=== PATIENT | female | born 1975 | race Caucasian/White ===

== ENCOUNTER 2018-07-22 20:48 | Emergency (ER) | payer OTHER ==
[2018-07-22 20:52] VITALS: BP 132/78; PULSE 78; TEMP 98.1; BMI 23.3
--- NOTE | 2018-07-22 21:16 | PDOC ---
History of Present Illness - General Chief Complaint: Headache Stated Complaint: MIGRAINE, HEAD PAIN Time Seen by Provider: 07/22/18 21:11 - History of Present Illness Initial Comments: 42-year-old female with abrupt onset of headache for the last 4 hours. She complains of right-sided head and eye pain as well as right-sided ear pain. She has never had a headache like this before she normally does not get headaches. She denies . She states she's had a bilateral tubal ligation in the past. 07/22/18 21:14 Past History - Past Medical History Allergies/Adverse Reactions: Allergies Allergy/AdvReac Type Severity Reaction Status Date / Time No Known Allergies Allergy Verified 07/22/18 20:52 Home Medications: Ambulatory Orders NK [No Known Home Medication] 07/22/18 COPD: No - Suicide/Smoking/Psychosocial Hx Smoking History: Never smoked Review of Systems - Review of Systems Neurological: Yes: Headache All Other Systems: Reviewed and Negative *Physical Exam - Vital Signs Last Vital Signs Temp Pulse Resp BP Pulse Ox 98.1 F 78 18 132/78 98 07/22/18 20:50 07/22/18 20:50 07/22/18 20:50 07/22/18 20:50 07/22/18 20:50 - Physical Exam Comments: HEAD: NC/AT EYES: Conjuntiva clear Ears: Canals and TM's normal NOSE: No d/c THROAT: Moist mucous membrances, oral pharanx clear, uvula midline NECK: Supple without adenopathy CARDIAC: S1 S2 LUNGS: CTA Full and Equal breath sounds ABDOMEN: Soft NT ND MS: Full ROM in all joints without edema NEUROLOGIC: No gross sensory or motor deficits, NVID SKIN: Normal color and temperature no lesions or rashes 07/22/18 21:15 ED Treatment Course - RADIOLOGY Radiology Studies Ordered: Category Date Time Status HEAD CT WITHOUT CONTRAST [CT] Stat CT Scan 07/22/18 21:14 Ordered Medical Decision Making - Medical Decision Making CAT scan negative headache resolved with IV Tylenol 07/22/18 22:23 *DC/Admit/Observation/Transfer Diagnosis at time of Disposition: Headache - Discharge Dispostion Disposition: HOME Condition at time of disposition: Improved Decision to Admit order: No - Referrals Referrals: Roddy Orellana [Primary Care Provider] - - Patient Instructions Printed Discharge Instructions: DI for Headache Additional Instructions: Continue to take Motrin and Tylenol for pain if you need. Take that as directed. Return to the emergency room should symptoms come back. Follow-up with her primary care physician for further evaluation and treatment options of her headache. - Post Discharge Activity
[2018-07-22] MEDS ORDERED: ACETAMINOPHEN 1000 MG/100 ML VIAL (NON FORMULARY) IVPB ONE (21:40)
[2018-07-22] MEDS ORDERED: ACETAMINOPHEN INJECTION 100 ML IVPB ONE (21:46)
== END 2018-07-22 22:34 | disposition home or self-care (01) ==
LOC: JERFT 20:48
PROC: 3E033NZ Introduction of Analgesics, Hypnotics, Sedatives into Peripheral Vein, Percutaneous Approach (ICD-10-PCS; principal; 2018-07-22)
DX: R51 Headache (principal)
CPT/HCPCS: 70450-TC; 99281-25; J0131